=== PATIENT | female | born 1985 | race Asian ===

== ENCOUNTER 2016-09-04 07:14 | Inpatient (IN) | payer OTHER ==
[2016-09-04] VITALS (20 sets, daily range): BP systolic 90–114; BP diastolic 51–70
[~2016-09-04] VITALS: Ht 152.4 cm; Wt 64.9 kg
[~2016-09-04 07:14] MED LIST: AUGMENTIN875 MG PO; CEPHALEXIN500 MG PO; ERYTHROMYC1 APPLICAT BOTH EYES; NAPROSYN500 MG PO; ULTRAM50 MG PO
[2016-09-04] MEDS ORDERED: PRENATAL TABLE1 EAC3 PO (07:48)
[2016-09-04] MEDS ORDERED: HUMALOG100 UNIT/1 SC ×3 (07:51→07:52)
[2016-09-04] MEDS ORDERED: NOVOLIN N100 UNITS/ SC ×2 (07:53→07:54)
[2016-09-04 09:46] LABS: EOSINOPHIL (%) 1.5 % (0-5); EOSINOPHIL COUNT 0.2 K/uL (0-0.3); HEMATOCRIT 33.5 % (36.0-46.0); IMMATURE GRANULOCYTE (%) 1.4 % (0.0-0.7); IMMATURE GRANULOCYTE COUNT 0.1 K/uL; INSTRUMENT ABS NEUTROPHIL CT 7.2 K/uL; LYMPHOCYTE COUNT 2.1 K/uL (1.0-2.8); MCV 97.1 FL (83-99); MEAN PLAT.VOLUME 9.7 uM^3 (9.5-12.4); MONOCYTE (%) 5.6 % (3-12); MONOCYTE COUNT 0.6 K/uL (0-0.8); NEUTROPHIL (%) 70.9 % (45-76); NEUTROPHIL COUNT 7.2 K/uL (1.8-6.4); PLATELET COUNT 257 K/uL (156-360); RBC DIS.WIDTH-CV 13.4 % (11.8-14.6); RBC DIS.WIDTH-SD 47.6 % (39-53); RED BLOOD COUNT 3.45 M/uL (3.80-5.20); WHITE BLOOD COUNT 10.2 K/uL (4.1-10.2)
[2016-09-04 10:12] LABS: ALKALINE PHOSPHATASE 120 IU/L (3-129); ANION GAP 9 MEQ/L (2-14); CHLORIDE 106 MEQ/L (99-109); GFR ESTIMATE (CALCULATED) > 59 mL/min/; GLUCOSE 70 mg/dL (70-99); POTASSIUM 4.3 MEQ/L (3.7-5.4); SAMPLE HEMOLYSIS CHECK 0; SAMPLE ICTERIC CHECK 0; SAMPLE LIPEMIA CHECK 0; SODIUM 139 MEQ/L (136-147); TOTAL BILIRUBIN 0.2 MG/DL (0.0-1.0); UREA NITROGEN (BUN) 12 mg/dL (9-23)
[2016-09-04 18:16] LABS: POINT-OF-CARE METER ID UU13113801
[2016-09-04 23:54] LABS: POINT-OF-CARE METER ID UU13113801
[2016-09-05] VITALS (20 sets, daily range): BP systolic 90–121; BP diastolic 51–74
[2016-09-05 07:14] LABS: POINT-OF-CARE METER ID UU13113801
[2016-09-05] MEDS ORDERED: IBUPROFEN800 MG PO (17:22)
[2016-09-05 18:29] LABS: POINT-OF-CARE METER ID UU13113801
[2016-09-06 08:07] VITALS: BP 101/67
[2016-09-06 16:00] VITALS: BP 99/68
[2016-09-07 07:33] VITALS: BP 91/62
== END 2016-09-07 10:42 | disposition home or self-care (01) | DRG 775 ==
LOC: LDRP-OP 07:14 → 2WEST 07:15 → LDRP-OP 09:33 → 2WEST 09-05 17:07 → LDRP-OP 10-26 13:13
PROVIDERS: Nurse Practitioner; Obstetrics & Gynecology
PROC: 3E033VJ Introduction of Other Hormone into Peripheral Vein, Percutaneous Approach (ICD-10-PCS; 2016-09-04)
PROC: 10E0XZZ Delivery of Products of Conception, External Approach (ICD-10-PCS; principal; 2016-09-05)
PROC: 10907ZC Drainage of Amniotic Fluid, Therapeutic from Products of Conception, Via Natural or Artificial Opening (ICD-10-PCS; 2016-09-05)
PROC: 3E0S3BZ Introduction of Anesthetic Agent into Epidural Space, Percutaneous Approach (ICD-10-PCS; 2016-09-05)
DX: O99.824 Streptococcus B carrier state complicating childbirth (principal); Z37.0 Single live birth; O24.424 Gestational diabetes mellitus in childbirth, insulin controlled; O24.425 Gestational diabetes mellitus in childbirth, controlled by oral hypoglycemic drugs; O99.283 Endocrine, nutritional and metabolic diseases complicating pregnancy, third trimester; O76 Abnormality in fetal heart rate and rhythm complicating labor and delivery; O69.81X0 Labor and delivery complicated by cord around neck, without compression, not applicable or unspecified; E07.9 Disorder of thyroid, unspecified; O36.5931 Maternal care for other known or suspected poor fetal growth, third trimester, fetus 1; Z79.4 Long term (current) use of insulin; Z3A.37 37 weeks gestation of pregnancy; Z79.84 Long term (current) use of oral hypoglycemic drugs
CPT/HCPCS: 80053; 82948; 85025; C1755; G0378; J1815; J2540; J3010; J7120